=== PATIENT | male | born 1970 | race Caucasian/White ===

== ENCOUNTER 2018-04-18 18:13 | Emergency (ER) | payer BC, OTHER ==
[2018-04-18] MEDS ORDERED: Fluorescein Opthalmic Strip ONE (18:20)
[2018-04-18] MEDS ORDERED: Gentamicin Ophth Soln 0.3% 5 ml Bottle ONE (18:30)
[2018-04-18] MEDS ORDERED: Neomycin-Polymyxin-Hc 7.5 ML BOT ONE (18:30)
== END 2018-04-18 18:50 | disposition home or self-care (01) ==
LOC: BURERS 18:13
DX: T15.01XA Foreign body in cornea, right eye, initial encounter (principal); I10 Essential (primary) hypertension
CPT/HCPCS: 65220